=== PATIENT | female | born 1975 | race American Indian/Alaskan Native ===

== ENCOUNTER 2017-01-14 08:32 | Emergency (ER) | payer OTHER, BC ==
[2017-01-14 08:33] VITALS: BMI 24.3
[2017-01-14] MEDS ORDERED: Sodium Chloride 0.9% 1,000 ML IV STA (08:45)
--- NOTE | 2017-01-14 08:46 | ED PDOC ---
Arrival/HPI - General Chief Complaint: Dizziness/Lightheaded Time Seen by Provider: 01/14/17 08:33 Historian: Patient - History of Present Illness Narrative History of Present Illness (Text): 01/14/17 08:46 41 year old female, with no significant past medical history, presents to the emergency department complaining of dizziness today. Patient was [place] [employer] [place] these symptoms began. Patient reports she was leaning over and felt light- headed and nauseous after. Patient states she missed her sugar dosage and believed her sugar may have been low. She drank orange juice with no relief. Patient also reports her blood pressure was high when she checked. She has not ate yet today. Patient denies any fever, chills, chest pain, shortness of breath , vomiting, diarrhea, urinary symptoms, back pain, neck pain, headache,or any other complaints. PMD: Dr. Soliman Time/Duration: Other (this morning) Symptom Onset: Sudden Symptom Course: Unchanged Activities at Onset: Light Context: Work Past Medical History - Provider Review Nursing Documentation Reviewed: Yes - Infectious Disease Hx of Infectious Diseases: None - Tetanus Immunization Tetanus Immunization: Unknown - Cardiac Hx Cardiac Disorders: No - Pulmonary Hx Asthma: Yes - Neurological Hx Neurological Disorder: No - HEENT Hx HEENT Disorder: No - Renal Hx Renal Disorder: No - Endocrine/Metabolic Hx Endocrine Disorders: No - Hematological/Oncological Hx Blood Disorders: No - Integumentary Hx Dermatological Disorder: No - Musculoskeletal/Rheumatological Hx Musculoskeletal Disorders: No - Gastrointestinal Hx Gastrointestinal Disorders: No - Genitourinary/Gynecological Hx Genitourinary Disorders: No - Psychiatric Hx Anxiety: Yes Hx Substance Use: No - Suicidal Assessment Feels Threatened In Home Enviroment: No Family/Social History - Physician Review Nursing Documentation Reviewed: Yes Family/Social History: No Known Family HX Smoking Status: Never Smoked Hx Alcohol Use: No Hx Substance Use: No Hx Substance Use Treatment: No Allergies/Home Meds Allergies/Adverse Reactions: Allergies No Known Allergies Allergy (Verified 01/14/17 08:45) Home Medications: Home Meds Medication Instructions Recorded Confirmed Venlafaxine [Effexor] 37.5 mg PO DAILY 01/14/17 01/14/17 Review of Systems - Physician Review All systems were reviewed & negative as marked: Yes - Review of Systems Constitutional: absent: Fevers, Other (Chills) Respiratory: absent: SOB Cardiovascular: absent: Chest Pain Gastrointestinal: Nausea. absent: Diarrhea, Vomiting Musculoskeletal: absent: Back Pain, Neck Pain Neurological: Dizziness. absent: Headache Physical Exam Vital Signs Reviewed: Yes Vital Signs Temp Pulse Resp BP Pulse Ox 01/14/17 14:00 97.9 F 99 H 17 141/95 H 100 01/14/17 12:00 99 H 18 163/96 H 97 01/14/17 10:00 89 18 158/89 H 97 01/14/17 08:42 97.8 F 100 H 17 160/99 H 95 Temperature: Afebrile Blood Pressure: Hypertensive Pulse: Tachycardic Respiratory Rate: Normal Appearance: Positive for: Well-Appearing, Non-Toxic, Comfortable Pain Distress: None Mental Status: Positive for: Alert and Oriented X 3 - Systems Exam Head: Present: Atraumatic, Normocephalic Pupils: Present: PERRL Extroacular Muscles: Present: EOMI Conjunctiva: Present: Normal Mouth: Present: Moist Mucous Membranes Neck: Present: Normal Range of Motion Respiratory/Chest: Present: Clear to Auscultation, Good Air Exchange. No: Respiratory Distress, Accessory Muscle Use Cardiovascular: Present: Regular Rate and Rhythm, Normal S1, S2. No: Murmurs Abdomen: Present: Normal Bowel Sounds. No: Tenderness, Distention, Peritoneal Signs Back: Present: Normal Inspection Upper Extremity: Present: Normal Inspection. No: Cyanosis, Edema Lower Extremity: Present: Normal Inspection. No: Edema Neurological: Present: GCS=15, CN II-XII Intact, Speech Normal Skin: Present: Warm, Dry, Normal Color. No: Rashes Psychiatric: Present: Alert, Oriented x 3, Normal Insight, Normal Concentration Medical Decision Making ED Course and Treatment: 01/14/17 08:46 Impression: 41 year old female presents complaining of dizziness at work when getting up after leaning over. Plan: -- EKG -- Labs -- Urinalysis -- IV Fluids -- HCG Qualitative urine -- Reassess and disposition Progress Notes: 01/14/17 09:26 Patient noted to be mildly anemic form her baseline. Patient reports miscarriage last month. Patient declines transfusion. 01/14/17 09:33 EKG shows NSR at 89 BPM. Interpreted by me. 01/14/17 9:36 Reviewed patient's lab shows HCG, Qual Positive and Transvaginal Ultrasound ordered. PROCEDURE: Indication: , reported history of miscarriage 1 month ago Dictator : Lindsey Gutierrez MD Report Date : 01/14/2017 12:12:57 Impression: No evidence of intrauterine gestational sac. The left ovary is not discretely visualized. Thick rimmed cystic structure is noted in the left adnexal region without clear evidence of pole or yolk sac however possibility of ectopic gestational sac must be considered. [employer] consultation, serial quantitative beta HCG, and close interval follow-up recommended as ectopic must be excluded. The right ovary measures approximately 4.4 x 3.1 x 4.2 cm and contains 2.3 x 2.6 x 3 cm probable cyst. Hypervascularity of uncertain significance noted. Heterogeneous uterine echotexture. Probable fibroids measuring approximately 2.2 x 2.5 x 2.6 cm and 3.2 x 3.8 x 3.6 cm within the fundus. Small pelvic free fluid. Findings discussed with Dr. Miles on 01/14/17 at 12:05 p.m. 01/14/17 15:37 pt noted to be ucg positive. reports "miscarriage in nov". US shows possible ectopic vs cystic struction. discussed case with pts obgyn dr ramos ([place], [place]) , advises cannot obtain lab work. discussed case with patient and obgyn contracts intern dr stover. states possibltiy of new (pt reports unprotected intercourse after "miscarriage" vs cyst vs ectopic. as abd soft no ttp, advises pt will need repeat labs tommorow. updated pt obgyn dr ramos. 01/14/17 15:40 - Lab Interpretations Lab Results: 01/14/17 08:50 01/14/17 08:50 Lab Results 01/14/17 12:20: Blood Type Confirm O POSITIVE 01/14/17 12:10: Blood Type O POSITIVE, Antibody Screen Negative, BBK History Checked No verified bt 01/14/17 09:43: Beta HCG, Quant 208.76 H 01/14/17 09:21: Urine Color Yellow, Urine Appearance Clear, Urine pH 7.0, Ur Specific [place] 1.020, Urine Protein Negative, Urine Glucose (UA) Negative, Urine Ketones Negative, Urine Blood Negative, Urine Nitrate Negative, Urine Bilirubin Negative, Urine Urobilinogen 0.2, Ur Leukocyte Esterase Negative, Urine HCG, Qual Positive 01/14/17 08:50: Sodium 140, Potassium 3.8, Chloride 102, Carbon Dioxide 27, Anion Gap 15, BUN 17, Creatinine 0.8, Est GFR ( Amer) > 60, Est GFR (Non- Af Amer) > 60, Random Glucose 103, Calcium 9.4, Total Bilirubin 0.6, AST 35, ALT 38, Alkaline Phosphatase 114, Total Protein 8.9 H, Albumin 4.8, Globulin 4.1 , Albumin/Globulin Ratio 1.2 01/14/17 08:50: WBC 9.6 D, RBC 3.55, Hgb 9.0 L, Hct 29.9 L, MCV 84.2, MCH 25.4 , MCHC 30.1 L, RDW 15.4 H, Plt Count 324, MPV 10.4, Gran % 79.3 H, Lymph % (Auto ) 15.3 L, [place] % (Auto) 4.2, Eos % (Auto) 1.1 L, Baso % (Auto) 0.1, Gran # 7.63 H, Lymph # 1.5, [place] # 0.4, Eos # 0.1, Baso # 0.01 01/14/17 08:41: POC Glucose (mg/dL) 91 I have reviewed the lab results: Yes - RAD Interpretation Radiology Orders: 01/14/17 09:36 TRANSVAGINAL [US] Stat - EKG Interpretation Interpreted by ED Physician: Yes Type: 12 lead EKG - Medication Orders Current Medication Orders: Discontinued Medications Sodium Chloride (Sodium Chloride 0.9%) 1,000 mls @ 999 mls/hr IV .Q1H1M STA Stop: 01/14/17 09:45 Last Admin: 01/14/17 09:22 Dose: 999 mls/hr eMAR Start Stop Document 01/14/17 09:22 [facility] [place] (Rec: 01/14/17 09:22 [facility] [place] [id number]) Intravenous Solution Start Date 01/14/17 Start Time 09:22 End Date 01/14/17 End time 10:25 Total Infusion Time 63 - Scribe Statement The provider has reviewed the documentation as recorded by the Dave Sin Provider Scribe Attestation: All medical record entries made by the Arnieibedwin were at my direction and personally dictated by me. I have reviewed the chart and agree that the record accurately reflects my personal performance of the history, physical exam, medical decision making, and the department course for this patient. I have also personally directed, reviewed, and agree with the discharge instructions and disposition. Disposition/Present on Arrival - Present on Arrival Any Indicators Present on Arrival: No History of DVT/PE: No History of Uncontrolled Diabetes: No Urinary Catheter: No History of Decub. Ulcer: No History Surgical Site Infection Following: None - Disposition Have Diagnosis and Disposition been Completed?: Yes Diagnosis: Threatened miscarriage Disposition: HOME/ ROUTINE Disposition Time: 02:00 Condition: STABLE Discharge Instructions (ExitCare): Threatened Miscarriage (ED), Acute Abdominal Pain (ED) Additional Instructions: please follow up with your doctor. return to er with worsening symptoms or concerns. you must be seen tommorow, either at ER or your doctor. your beta was 208. you need repeat lab work. the possiblity of ectopic has not been excluded Referrals: [facility] [Outside] - Follow up with primary [facility] [Outside] - [facility] up with [facility] [Outside] - Follow up with primary Soni Stover MD [Staff Provider] - Follow up with primary Lalo Soliman MD [Primary Care Provider] - Follow up with primary Forms: [employer] (Bulgarian)
[2017-01-14 09:16] LABS: BASO # 0.01 K/mm3 (0.0-2.0); BASO % 0.1 % (0.0-3.0); EOS # 0.1 (0.0-0.7); EOS % 1.1 % (1.5-5.0); GRAN # 7.63 (1.4-6.5); GRAN % 79.3 % (50.0-68.0); HEMATOCRIT 29.9 % (36.0-48.0); LYMPH # 1.5 (1.2-3.4); LYMPH % 15.3 % (22.0-35.0); MEAN CELL VOLUME 84.2 fl (80.0-105.0); MEAN CORPUSCULAR HEMOGLOBIN 25.4 pg (25.0-35.0); MEAN CORPUSCULAR HGB CONC 30.1 g/dl (31.0-37.0); MEAN PLATELET VOLUME 10.4 fl (7.0-11.0); MONO # 0.4 (0.1-0.6); MONO % 4.2 % (1.0-6.0); RED CELL DISTRIBUTION WIDTH 15.4 % (11.5-14.5); WHITE BLOOD COUNT 9.6 10^3/ul (4.5-11.0)
[2017-01-14 09:25] LABS: URINE BILIRUBIN NEGATIVE (NEGATIVE); URINE BLOOD NEGATIVE (NEGATIVE); URINE GLUCOSE (UA) NEGATIVE (NEGATIVE); URINE KETONE NEGATIVE (NEGATIVE); URINE LEUKOCYTE ESTERASE NEGATIVE Leu/uL (NEGATIVE); URINE PROTEIN NEGATIVE mg/dL (<30 mg/dL); URINE UROBILINOGEN 0.2 E.U./dL (<1 E.U./dL)
[2017-01-14 09:26] LABS: URINE APPEARANCE CLEAR (CLEAR); URINE COLOR YELLOW (YELLOW)
[2017-01-14 09:26] LABS: ALB/GLOB RATIO 1.2 (1.1-1.8); ALKALINE PHOSPHATASE 114 U/L (38-126); ALT/SGPT 38 U/L (7-56); AST/SGOT 35 U/L (14-36); BILIRUBIN,TOTAL 0.6 mg/dL (0.2-1.3); BLOOD UREA NITROGEN 17 mg/dL (7-21); CALCIUM 9.4 mg/dL (8.4-10.5); CARBON DIOXIDE 27 mmol/L (21-33); CHLORIDE 102 mmol/L (98-107); GFR AFRICAN-AMERICAN > 60; GLUCOSE,RANDOM 103 mg/dL (70-110); POTASSIUM 3.8 mmol/L (3.6-5.0); SODIUM 140 mmol/L (132-148); TOTAL PROTEIN 8.9 g/dL (5.8-8.3)
--- NOTE | 2017-01-14 12:14 | US ---
Indication: , reported history of miscarriage 1 month ago Comparison: None available Technique: Transvaginal pelvic ultrasound Findings: The uterus measures approximately 10.5 x 5.9 x 8 cm. Anteverted. Heterogeneous uterine echotexture. Probable fibroids measuring approximately 2.2 x 2.5 x 2.6 cm and 3.2 x 3.8 x 3.6 cm within the fundus. No evidence of intrauterine gestational sac. The left ovary is not discretely visualized. Thick rimmed cystic structure is noted in the left adnexal region without clear evidence of pole or yolk sac however possibility of gestational sac must be considered ; ectopic cannot be excluded. The right ovary measures approximately 4.4 x 3.1 x 4.2 cm and contains 2.3 x 2.6 x 3 cm probable cyst. Hypervascularity of uncertain significance noted. Small pelvic free fluid. Impression: No evidence of intrauterine gestational sac. The left ovary is not discretely visualized. Thick rimmed cystic structure is noted in the left adnexal region without clear evidence of pole or yolk sac however possibility of ectopic gestational sac must be considered. [employer]ENT consultation, serial quantitative beta HCG, and close interval follow-up recommended as ectopic must be excluded. The right ovary measures approximately 4.4 x 3.1 x 4.2 cm and contains 2.3 x 2.6 x 3 cm probable cyst. Hypervascularity of uncertain significance noted. Heterogeneous uterine echotexture. Probable fibroids measuring approximately 2.2 x 2.5 x 2.6 cm and 3.2 x 3.8 x 3.6 cm within the fundus. Small pelvic free fluid. Findings discussed with Dr. Miles on 01/14/17 at 12:05 p.m.
[2017-01-14 13:07] VITALS: PULSE 99
[2017-01-14 14:33] VITALS: BP 141/95; RESP 17; TEMP 97.9; O2SAT 100
--- NOTE | 2017-01-14 15:59 | CARD ---
APPROVED REPORT EKG Measurement Heart [id number] <Conclusion> Normal sinus rhythm Normal ECG
== END 2017-01-14 14:40 | disposition home or self-care (01) ==
LOC: ED 08:32 → UNDOADMIN 12:28 → ERH 12:28 → ED 14:40
DX: O20.0 Threatened abortion (principal); Z3A.00 Weeks of gestation of pregnancy not specified
CPT/HCPCS: 76830; 80053; 81003; 82948; 84702; 84703; 85025; 86850; 86900; 93005; 96360; 99285; J7040

== ENCOUNTER 2018-05-28 10:29 | Outpatient (CLI) | payer OTHER, BC | END 2018-05-28 10:30 | disposition home or self-care (01) | LOC: RAD 10:29 ==